=== PATIENT | female | born 1960 | race Two or more races ===

== ENCOUNTER → 2017-06-01 | Day surgery (SDC) | payer BC ==
--- NOTE | 2017-06-02 16:14 | PATH ---
Surgical Pathology Report Patient Name: LOUIS MICHEL [facility]. Rec. #: [id number] /Age/Gender: 1960 (Age: 57) / F Account: [id number] Location: [facility] Taken: 06/01/2017 Received: 06/01/2017 Reported: 06/02/2017 Physicians: Paris Corbin M.D. 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 Electronically Signed Anny Rothman M.D. Gross Description Received in formalin labeled "right breast with density," is a 2.5 x 2.2 x 0.3 cm aggregate of multiple cavanaugh-yellow, irregular to cylindrical portions of fibroadipose tissue. The formalin is filtered and the specimen is entirely submitted in one cassette. Time to formalin fixation: 5 minutes Total formalin fixation time: Approximately 6 hours. /06/01/2017 [facility]
== END | disposition home or self-care (01) ==
LOC: FMAMMOTONE 11:13
PROVIDERS: ATTEND Surgery Surgical Oncology
PROC: 0HBT3ZX Excision of Right Breast, Percutaneous Approach, Diagnostic (ICD-10-PCS; principal; 2017-06-01)
DX: N60.11 Diffuse cystic mastopathy of right breast (principal); N60.81 Other benign mammary dysplasias of right breast; R92.8 Other abnormal and inconclusive findings on diagnostic imaging of breast; N64.89 Other specified disorders of breast
CPT/HCPCS: 19081; 88305-TC